=== PATIENT | female | born 1945 | race Caucasian/White ===

== ENCOUNTER 2019-08-20 06:46 | Inpatient (IN) | payer MEDICARE, BC ==
[2019-08-11 15:02] LABS: BASOPHILS # (AUTO) 0.1 X10'3 (0-0.2); BASOPHILS % (AUTO) 1.2 % (0-1); EOSINOPHILS # (AUTO) 0.4 X10'3 (0-0.9); EOSINOPHILS % (AUTO) 5.4 % (0-6); LYMPHOCYTES # (AUTO) 2.3 X10'3 (1.1-4.8); LYMPHOCYTES % (AUTO) 31.4 % (21-51); MEAN CORPUSCULAR HEMOGLOBIN 32.3 PG (27.0-31.0); MEAN CORPUSCULAR HGB CONC 33.9 g/dL (33.0-36.5); MEAN CORPUSCULAR VOLUME 95.1 FL (78-98); MEAN PLATELET VOLUME 8.6 FL (7.4-10.4); MONOCYTES # (AUTO) 0.6 X10'3 (0-0.9); PRE OP HEMATOCRIT 40.2 % (35.0-45.0); PRE OP HEMOGLOBIN 13.6 g/dL (12.0-16.0); PRE OP PLATELET COUNT 293 X10'3 (140-440); RED BLOOD COUNT 4.23 X10'6 (4.20-5.60); RED CELL DISTRIBUTION WIDTH 13.8 % (11.5-14.5)
[2019-08-11 15:26] LABS: ALBUMIN 3.4 G/DL (3.4-5.0); ALBUMIN/GLOBULIN RATIO 1.1 (1.1-1.5); ALKALINE PHOSPHATASE 62 IU/L (46-116); BLOOD UREA NITROGEN 20 MG/DL (7-18); BUN/CREATININE RATIO 18.2 (6.6-38.0); CALCIUM 8.4 MG/DL (8.5-10.1); CHLORIDE 108 MMOL/L (99-107); PRE OP ALT 23 U/L (30-65); PRE OP ANION GAP 5 (8-16); PRE OP AST 15 U/L (10-37); PRE OP BILIRUB, TOTAL 0.3 MG/DL (0.0-1.0); PRE OP GLUCOSE 109 MG/DL (70-104); PRE OP POTASSIUM 4.1 MMOL/L (3.4-5.1); PRE OP SODIUM 143 MMOL/L (135-145); TOTAL CARBON DIOXIDE 30.2 MMOL/L (24-32); TOTAL PROTEIN 6.4 G/DL (6.4-8.2); eGFR 49 ML/MIN
[~2019-08-20] VITALS: Ht 157.5 cm; Wt 124.0 kg
[2019-08-20] VITALS (14 sets, daily range): BP systolic 110–162; BP diastolic 46–91
[~2019-08-20 06:46] MED LIST: BENA20TA82 PO; DULO-31 PO; HCTZ25T PO; NOR5T PO; TRAZ150T78 PO; ceFAZolin 1GM/D5W- ADD-VANTAGE 50 ML IV ONE; cefazolin/dext.iso 2gm/100ml 100 ML IV ONE; famotidine 20mg tablet PO ONE; ringers solution, lacted 1,000 ML IV SCH; tranexamic acid inj. 1,000 MG in normal saline 100 ML IV ONE; vancomycin 1,500 MG in NS 500ml IV soln IV ONE
[2019-08-20] MEDS ORDERED: ketorolac trometh. 30mg/ml inj. ONE (10:27)
[2019-08-20] MEDS ORDERED: ROPIVAcaine 0.5% (5mg/ml) 30ml vial ONE ×2 (10:28→10:45)
[2019-08-20] MEDS ORDERED: midazolam 2 mg/2 ml injection ONE ×2 (10:42→10:43)
[2019-08-20] MEDS ORDERED: fentaNYL/PF 50MCG/1 ML 2ML syringe ONE (10:42)
[2019-08-20] MEDS ORDERED: propofol inj 20 ML IV ONE (10:43)
[2019-08-20] MEDS ORDERED: sevoflurane 250ml liquid IH ONE (10:49)
[2019-08-20] MEDS ORDERED: TRANEXAMIC ACID in 0.7% saline 1,000 MG/100 ML IVPB IV ONE (10:49)
[2019-08-20] MEDS ORDERED: tranexamic acid inj. 1,300 MG in normal saline 100ml IV soln 100 ML IV ONE ×5 (10:50→16:35)
[2019-08-20] MEDS ORDERED: ringers solution, lacted 1,000 ML IV SCH (12:32)
[2019-08-20] MEDS ORDERED: morphine 4 MG/ML inj SYRINge IV PRN (12:35)
[2019-08-20] MEDS ORDERED: ondansetron/PF 4mg/2ml inj IV PRN ×2 (12:35→13:35)
[2019-08-20] MEDS ORDERED: morphine 2 MG/ML inj. syringe IV PRN (12:35)
[2019-08-20] MEDS ORDERED: meperidine/PF 25mg/ml syringe IV PRN ×3 (12:35)
[2019-08-20] MEDS ORDERED: proCHLORperazine 10 MG/2 ml inj IV PRN (12:35)
[2019-08-20] MEDS ORDERED: ROPIVAcaine 0.2% (10 MG/5 ML) BOLUS INJECTION INTERSCALE PRN (12:35)
[2019-08-20] MEDS ORDERED: ePHEDrine 50MG/ML INJ. ONE (13:02)
--- NOTE | 2019-08-20 13:31 | NUR ---
Received from OR via ORTHO BED WITH [facility] , accompanied by Anesthesiologist ROSMERY and report given by Anesthesiolgist. PATIENT WITH SLING AND SHOULDER WRAP TO RIGHT UE, DRESSING CDI. + CAP REFILL SENSATION AND MOVEMENT .DENIES PAIN AT THIS TIME. NERVE BLOCK SITE TO RIGHT SIDE OF BODY. SCDS DONNED. Addendum: 08/20/19 at 1349 by Michele Canchola RN, RN Amended: Links added.
[2019-08-20] MEDS ORDERED: acetaminophen 325mg tablet PO PRN (13:35)
[2019-08-20] MEDS ORDERED: oxyCODONE IR 5mg (immed. release) tablet PO PRN (13:35)
[2019-08-20] MEDS ORDERED: HYDROcodone/acetaminophen 10/325mg tab PO PRN (13:35)
[2019-08-20] MEDS ORDERED: HYDROmorphone 1 mg/ml syringe IV PRN (13:35)
[2019-08-20] MEDS ORDERED: magnesium hydroxide 30ml (MOM) UD suspension PO PRN (13:35)
[2019-08-20] MEDS ORDERED: HYDROmorphone inj. 0.5 MG/0.5 ML DISP.SYRIN IV PRN (13:35)
[2019-08-20] MEDS ORDERED: bisacodyl 10mg suppository rectal RC PRN (13:35)
[2019-08-20] MEDS ORDERED: diphenhydrAMINE 25mg capsule PO PRN ×2 (13:35)
[2019-08-20] MEDS: ROPIVAcaine 0.2%/PF PUMP/bolus 550 ML INTERSCALE SCH (13:57)
--- NOTE | 2019-08-20 14:27 | NUR ---
ALL CRITERIA FOR TRANSFER TO THE FLOOR HAS BEEN ACHIEVED. VSS. BED LOW, CALL LIGHT AND VS. SET IN PLACE. RN PRESENT TO ACCEPT CARE. PATIENT RESTING COMFORTABLY IN BED. BELONGINGS SENT WITH PATIENT. DRESSINGS CDI. CAMMY FELICIANO INFORMED THAT PATIENT HAS ARRIVED. VSS. Addendum: 08/20/19 at 1457 by Michele Thompson - CAMMY CHAWLA Amended: Links added.
[2019-08-20] MEDS: acetaminophen 325mg tablet PO SCH ×2 (16:49→19:43)
[2019-08-20] MEDS: ceFAZolin 1GM/D5W- ADD-VANTAGE 50 ML IV SCH ×2 (17:50→23:49)
[2019-08-20] MEDS: potassium cl 20mEq in 1/2 NS 1,000 ML IV SCH ×2 (19:42→21:35)
[2019-08-20] MEDS ORDERED: vancomycin/NS 1 GM ADD-VANTAGE 250 ML IV SCH (20:00)
[2019-08-20] MEDS ORDERED: traZODone 150mg tablet PO SCH (21:00)
[2019-08-20] MEDS ORDERED: sennosides 8.6mg tablet PO SCH (21:00)
[2019-08-21] MEDS: acetaminophen 325mg tablet PO SCH ×2 (01:32→07:36)
[2019-08-21] MEDS: ROPIVAcaine 0.2%/PF PUMP/bolus 550 ML INTERSCALE SCH (01:39)
[2019-08-21 02:00] VITALS: BP 139/52
[2019-08-21] MEDS: oxyCODONE IR 5mg (immed. release) tablet PO PRN ×2 (05:31→10:10)
[2019-08-21] MEDS: potassium cl 20mEq in 1/2 NS 1,000 ML IV SCH (05:33)
[2019-08-21 06:00] VITALS: BP 162/78
--- NOTE | 2019-08-21 06:21 | NUR ---
Problems reprioritized. Patient report given, questions answered & plan of care reviewed with CAMMY Pedersen.
--- NOTE | 2019-08-21 06:35 | NUR ---
Patient in room ORTHO 4013. I have received report from Margoth and had the opportunity to ask questions and assume patient care.
[2019-08-21 06:45] LABS: BASOPHILS % (AUTO) 0.5 % (0-1); EOSINOPHILS # (AUTO) 0.2 X10'3 (0-0.9); EOSINOPHILS % (AUTO) 2.9 % (0-6); HEMATOCRIT 37.5 % (35.0-45.0); HEMOGLOBIN 12.9 g/dl (12.0-16.0); LYMPHOCYTES # (AUTO) 1.5 X10'3 (1.1-4.8); LYMPHOCYTES % (AUTO) 19.6 % (21-51); MEAN CORPUSCULAR HEMOGLOBIN 33.3 PG (27.0-31.0); MEAN CORPUSCULAR HGB CONC 34.5 g/dL (33.0-36.5); MEAN CORPUSCULAR VOLUME 96.7 FL (78-98); MEAN PLATELET VOLUME 8.7 FL (7.4-10.4); MONOCYTES # (AUTO) 0.6 X10'3 (0-0.9); MONOCYTES % (AUTO) 8.3 % (2-12); NEUTROPHILS # (AUTO) 5.4 X10'3 (1.8-7.7); NEUTROPHILS % (AUTO) 68.7 % (42-75); PLATELET COUNT 237 X10'3 (140-440); RED BLOOD COUNT 3.88 X10'6 (4.20-5.60); RED CELL DISTRIBUTION WIDTH 13.8 % (11.5-14.5); WHITE BLOOD COUNT 7.9 X10'3 (4.5-11.0)
[2019-08-21 06:49] LABS: ANION GAP 9 (8-16); CHLORIDE 110 MMOL/L (99-107); POTASSIUM 4.6 MMOL/L (3.5-5.1); SODIUM 142 MMOL/L (135-145); TOTAL CARBON DIOXIDE 22.8 MMOL/L (24-32)
[2019-08-21] MEDS ORDERED: duloxetine 30mg CAPSULE.DR PO SCH (08:00)
[2019-08-21] MEDS ORDERED: amLODIPine 5mg tablet PO SCH (08:00)
[2019-08-21] MEDS ORDERED: HYDROchlorothiazide 25mg tablet PO SCH (08:00)
[2019-08-21] MEDS ORDERED: lisinopril 20mg tablet PO SCH (08:00)
[2019-08-21] MEDS ORDERED: aspirin 325mg tablet PO SCH (08:30)
[2019-08-21 10:00] VITALS: BP 128/43
--- NOTE | 2019-08-21 12:16 | NUR ---
Safe discharged. Left with family member and all personal items with patient.
[2019-08-22] MEDS ORDERED: acetaminophen 325mg tablet PO PRN (13:35)
--- NOTE | 2019-08-24 11:02 | NUR ---
Case Management DC follow up: LM/VM post DC status, questions/concerns Addendum: 08/25/19 at 1347 by Sosa Chowdary RN Case Management DC follow up/pt rtnd call: spoke to pt via telephone. Reports "feeling okay, it's just taking its time", Denies acute/continuous CP, emergent general pain, SOB, respiratory distress, NV, dizziness, syncope episodes, abd pain, BELL, blurry vision. Verbalizes understanding of medications and why prescribed. taking [place] 1tab 10/325 PRN Q4. pt states still in pain before fourth hour, advised to use cool compress, 1 tylenol 325. Taking curren Rx as ordered, no ase noted r/t polypharmacy/new meds. verbalizes understanding of post op care for L shoulder surgery/compliant. verbalizes understanding of s/s that would warrant 9-11/ER visit for evaluation. Acknowledges importance of scheduling/keeping appointments w/PCP will call to schedule/referrals/specialists/Dr Miller first week in August. Needs met, questions answered at DC. No further questions at this time.
== END 2019-08-21 12:00 | disposition home or self-care (01) | DRG 483 ==
LOC: PAS IN 06:46 → UNDOADMIN 06:46 → EDSTATUS 11:15 → PAS IN 13:35 → ORTHO 4S 14:34
PROVIDERS: ADMIT Orthopaedic Surgery; ATTEND Orthopaedic Surgery
PROC: 0LS30ZZ Reposition Right Upper Arm Tendon, Open Approach (ICD-10-PCS; 2019-08-20)
PROC: 3E0T3BZ Introduction of Anesthetic Agent into Peripheral Nerves and Plexi, Percutaneous Approach (ICD-10-PCS; 2019-08-20)
PROC: 0RRJ00Z Replacement of Right Shoulder Joint with Reverse Ball and Socket Synthetic Substitute, Open Approach (ICD-10-PCS; principal; 2019-08-20 10:49)
PROC: 5A09357 Assistance with Respiratory Ventilation, Less than 24 Consecutive Hours, Continuous Positive Airway Pressure (ICD-10-PCS; 2019-08-21)
DX: M19.011 Primary osteoarthritis, right shoulder (principal); Z68.43 Body mass index [BMI] 50.0-59.9, adult; E66.01 Morbid (severe) obesity due to excess calories; I10 Essential (primary) hypertension; M75.41 Impingement syndrome of right shoulder; M75.21 Bicipital tendinitis, right shoulder; G47.30 Sleep apnea, unspecified; M65.812 Other synovitis and tenosynovitis, left shoulder; F41.8 Other specified anxiety disorders; Z79.899 Other long term (current) drug therapy
CPT/HCPCS: 36415; 71046; 80051; 80053; 82948; 85025; 87081; 97110; 97116; 97162; 97530; A4215; A4565; A4618; A7000; C1713; C1776; G0378; J0690; J1885; J2250; J2704; J2795; J3010; J3370; J3480; J7040; J7120; Q0163